=== PATIENT | female | born 1960 ===

== ENCOUNTER 2020-11-27 10:10 | Emergency (ER) | payer MEDICARE ==
[2020-11-27] MEDS ORDERED: ZOFRAN4 MG PO (13:57)
[2020-11-27] MEDS ORDERED: NAPROSYN500 MG PO (13:57)
== END 2020-11-27 14:47 | disposition home or self-care (01) ==
LOC: ER1 10:10
DX: U07.1 COVID-19 (principal); I10 Essential (primary) hypertension
CPT/HCPCS: 96374; 96375; 99284; J1885; J2405; U0002